=== PATIENT | female | born 1940 | race Caucasian/White ===

== ENCOUNTER 2016-09-13 15:02 | Inpatient (IN) | payer MEDICARE ==
[2016-09-13] MEDS ORDERED: ALBUTEROL NEBULIZED 2.5 MG/3 ML INHALATION PRN (21:45)
[2016-09-13] MEDS ORDERED: MELATONIN 3 MG TABLET PO PRN (22:25)
[2016-09-13] MEDS ORDERED: NALOXONE 0.4 MG/ML 1 ML VIAL IV PRN (22:25)
[2016-09-13] MEDS ORDERED: oxyCODONE-APAP 5-325MG 1 EACH TAB PO PRN (22:25)
[2016-09-13] MEDS ORDERED: ALPRAZolam 0.25 MG TAB PO PRN (22:25)
[2016-09-13] MEDS ORDERED: ACETAMINOPHEN TAB 325 MG TAB PO PRN (22:25)
[2016-09-13 22:58] LABS: Basophils % (A) 0 %; CH 26.9; CHCM 31.2; Eosinophils # (A) 0.1 k/uL (0-0.7); Eosinophils % (A) 1 %; HCT 47.5 % (34.0-46.0); HDW 2.27; HGB 14.2 gm/dL (11.4-16.0); Luc # (Auto) 0.06; Luc % (Auto) 1; Lymphocytes # (A) 0.7 k/uL (1.0-4.8); Lymphocytes % (A) 9 %; MCH 25.9 pg (25.0-35.0); MCHC 29.9 g/dL (31.0-37.0); MCV 86.5 fL (80.0-100.0); Mean Platelet Volume 6.8; Monocytes # (A) 0.3 k/uL (0-1.0); Monocytes % (A) 4 %; Neutrophils # (A) 6.7 k/uL (1.3-7.7); Neutrophils % (A) 86 %; RBC 5.49 m/uL (3.80-5.40); RDW 12.4 % (11.5-15.5); WBC 7.8 k/uL (3.8-10.6); WBC (Perox) 7.96
--- NOTE | 2016-09-13 22:59 | XR ---
EXAMINATION TYPE: XR chest 1V portable DATE OF EXAM: 09/13/2016 10:49 PM COMPARISON: NONE HISTORY: Heart failure. Short of breath. TECHNIQUE: Single frontal view of the chest is obtained. FINDINGS: There is extensive reticular nodular infiltrate in the mid and upper lung ackerman. There is retraction of the pulmonary leilani. Heart size is normal. There is no heart failure. There is no pleur al effusion. Bony thorax is intact. IMPRESSION: There is extensive pulmonary scarring and volume loss in the upper lobes. This could rel ate to old granulomatous disease and reactivation tuberculosis. Normal heart.
[2016-09-13] MEDS: SODIUM CHLORIDE 0.9% 1,000 ML IV SCH (23:07)
[2016-09-13 23:14] LABS: ALT 49 U/L (9-52); AST 40 U/L (14-36); Alkaline Phosphatase 53 U/L (38-126); Anion Gap 9 mmol/L; Blood Urea Nitrogen 23 mg/dL (7-17); Carbon Dioxide 29 mmol/L (22-30); Chloride 101 mmol/L (98-107); Glucose 175 mg/dL (74-99); Magnesium 2.4 mg/dL (1.6-2.3); Non-African American GFR(MDRD) >60 (>60 ml/min/1.73 sqM); Phosphorous 3.8 mg/dL (2.5-4.5); Potassium 4.7 mmol/L (3.5-5.1); Sodium 139 mmol/L (137-145); Total Bilirubin 0.5 mg/dL (0.2-1.3); Total Protein 6.7 g/dL (6.3-8.2)
[2016-09-13] MEDS: NICOTINE 14MG/24HR PATCH TRANSDERM SCH (23:44)
[2016-09-14] MEDS: AZITHROMYCIN 500 MG in SODIUM CHLORIDE 0.9% 250 ML IVPB SCH ×2 (00:25→20:15)
[2016-09-14 06:06] LABS: Basophils # (A) 0.1 k/uL (0-0.2); Basophils % (A) 0 %; CH 26.1; CHCM 28.2; Eosinophils % (A) 0 %; HCT 49.5 % (34.0-46.0); HDW 2.34; HGB 14.2 gm/dL (11.4-16.0); Hypochromasia Marked; Luc # (Auto) 0.24; Luc % (Auto) 2; Lymphocytes # (A) 1.2 k/uL (1.0-4.8); Lymphocytes % (A) 10 %; MCH 26.6 pg (25.0-35.0); MCHC 28.7 g/dL (31.0-37.0); Mean Platelet Volume 7.4; Monocytes # (A) 1.1 k/uL (0-1.0); Monocytes % (A) 10 %; Neutrophils # (A) 8.8 k/uL (1.3-7.7); Neutrophils % (A) 78 %; RBC 5.33 m/uL (3.80-5.40); RDW 12.6 % (11.5-15.5); WBC 11.4 k/uL (3.8-10.6); WBC (Perox) 11.66
[2016-09-14 06:10] LABS: Anion Gap 6 mmol/L; Blood Urea Nitrogen 19 mg/dL (7-17); Calcium 9.1 mg/dL (8.4-10.2); Carbon Dioxide 31 mmol/L (22-30); Chloride 103 mmol/L (98-107); Glucose 113 mg/dL (74-99); Non-African American GFR(MDRD) >60 (>60 ml/min/1.73 sqM); Potassium 5.2 mmol/L (3.5-5.1); Sodium 140 mmol/L (137-145)
[2016-09-14 06:14] LABS: MCV 92.9 fL (80.0-100.0)
[2016-09-14] MEDS: FORMOTEROL FUMARATE 20 MCG/2 ML NEBU INHALATION SCH ×2 (07:16→19:40)
[2016-09-14] MEDS: IPRATROPIUM 0.5 MG/2.5 ML NEBU INHALATION SCH ×3 (07:16→19:40)
[2016-09-14] MEDS: LEVALBUTEROL NEB (CONC) 1.25 MG/0.5 ML AMP INHALATION SCH ×3 (07:16→19:40)
--- NOTE | 2016-09-14 08:00 | HP ---
DATE OF ADMISSION: CHIEF COMPLAINT: Shortness of breath and cough. HISTORY OF PRESENT ILLNESS: This 75-year-old woman with a past medical history of apparent heartburn, constipation and history of pneumonia, not being followed by any primary physician in the outpatient setting, living in [place]. Patient apparently was smoking. The patient's recently passed because of emphysema. The patient was having shortness of breath and difficulty in walking and weakness presented to [facility]. The patient was diagnosed to have possible pneumonia, but apparently the patient left the hospital AGAINST MEDICAL ADVICE. Because of increased difficulty, the patient went back and subsequently transferred to [facility] as a direct admission at this time. A CAT scan and chest x-ray were done in the [facility] and as mentioned earlier showed evidence of nodular lesions and as well as possible pneumonia as well. There is no history of any fever, rigors. No history of headache, loss of consciousness or seizures. The patient is severely emaciated. BMI is only 15.5. Patient only reported a couple pounds of weight loss. PAST MEDICAL HISTORY: History of heartburn, pneumonia. Medications recently started: 1. Prednisone 40 mg daily. 2. Levaquin 750 p.o. daily. 3. Ventolin HFA 2 puffs q.6 p.r.n. ALLERGIES: PREDNISONE, causes swelling. FAMILY HISTORY: History of COPD and emphysema. SOCIAL HISTORY: History of smoking as mentioned. No history of alcohol intake. REVIEW OF SYSTEMS: ENT: No diminished hearing or diminished vision. CARDIOVASCULAR SYSTEM: No angina or palpitations. RESPIRATORY: As mentioned earlier. GI: No nausea. : No dysuria. NERVOUS SYSTEM: No numbness or weakness. ALLERGY/IMMUNOLOGY: No asthma or hayfever. MUSCULOSKELETAL: As mentioned earlier. HEMATOLOGY/ONCOLOGY: No history of anemia. ENDOCRINE: No history of diabetes mellitus or hypothyroidism. CONSTITUTIONAL: As mentioned earlier. DERMATOLOGY: Negative. RHEUMATOLOGY: Negative. PSYCHIATRY: As mentioned earlier. PHYSICAL EXAMINATION: The patient is alert and oriented x3. The pulse is 87, blood pressure 135/78, respirations 18, temperature 97.5, pulse ox 97% on 3 L. HEENT: Conjunctivae normal. Oral mucosa moist. NECK: No jugular venous distention. No carotid bruit. No lymph node enlargement. The patient is severely emaciated. BMI is only 15.5. Otherwise accessory muscles of respiration acting. CARDIOVASCULAR: S1 and S2, muffled. No S3, no S4. RESPIRATORY: Breath sounds diminished at the bases. Breathing efforts are mildly increased. Bilateral scattered rhonchi and crackles. ABDOMEN: Soft, nontender. No mass palpable. Scaphoid. LEGS: No edema, no swelling. NERVOUS SYSTEM: Higher function as mentioned. Moves all4 limbs. No focal motor deficits. LYMPHATICS: No lymphadenopathy of neck, axillae or groin. SKIN: No ulcers, rashes or bleeding. Labs are not available. ASSESSMENT: 1. Chronic obstructive pulmonary disease acute exacerbation with acute purulent tracheobronchitis possibly bronchopneumonia. 2. The nodular lesions on the CAT scan, rule out malignancy. 3. Severe protein calorie malnutrition and weight loss with the body mass index 15.5. 4. History of nicotine dependence. 5. History of bunionectomy. 6. History of tuberculosis. 7. FULL CODE. RECOMMENDATIONS AND DISCUSSION: This 75-year-old woman presented with multiple complex medical issues, will monitor the patient closely. Continue the current medication. Continue symptomatic treatment. Will initiate broad-spectrum antibiotic. I will initiate Rocephin and Zithromax. Otherwise, pulmonary consult and bronchodilators. Steroids may be avoided because of the history of allergies. Prognosis guarded. Further recommendations to follow. I also recommend the patient to follow up with primary care physician as well as web content executive as an outpatient as mentioned earlier. We will review the CAT scan report as well. Chest x-ray has been ordered. Prognosis guarded. Influenza testing also will be done. Further recommendations to follow. Smoking cessation has been advised. MTDD
[2016-09-14] MEDS ORDERED: LEVOFLOXACIN 750 MG TAB PO SCH (09:00)
[2016-09-14] MEDS: PANTOPRAZOLE 40 MG TABLET PO SCH (09:34)
[2016-09-14] MEDS: HEPARIN SODIUM,PORCINE 5,000 UNIT/ML 1 ML VIAL SQ SCH ×2 (09:34→20:15)
[2016-09-14] MEDS: NICOTINE 14MG/24HR PATCH TRANSDERM SCH (09:34)
[2016-09-14 11:30] VITALS: BMI 15.5
[2016-09-14] MEDS: MULTIVITAMINS, THERA 1 EACH TAB PO SCH (13:55)
[2016-09-14 17:00] LABS: Appearance,Urine Clear (Clear); Bilirubin,Urine Negative (Negative); Glucose,Urine (UA) Negative (Negative); Ketones,Urine Negative (Negative); Leukocyte Esterase,Urine Negative (Negative); Nitrite,Urine Negative (Negative); PH, Urine 5.5 (5.0-8.0); Protein,Urine Negative (Negative); Specific Gravity,Urine 1.022 (1.001-1.035); UA Billing (MACRO vs. MICRO) CHEM; Urobilinogen,Urine <2.0 mg/dL (<2.0)
--- NOTE | 2016-09-14 18:27 | PN ---
DATE OF SERVICE: 09/14/2016 This 75 -year-old woman was admitted with COPD acute exacerbation also had bilateral lung lesions also. The patient has history of previously. Apparently the patient contracted from her father who had but currently the patient also complains of significant weight loss. Also, Dr. Martin is following the patient closely. Troponins are negative at this time. The patient is short of breath as mentioned earlier. The patient is extremely emaciate with only body mass index 15.5 at this time. Past medical history reviewed. REVIEW OF SYSTEMS: CARDIOVASCULAR: No angina or palpitations. RESPIRATORY: As mentioned earlier. GI: No nausea. : No dysuria or retention. Current medications are: 1. Tylenol 650 q.6 p.r.n. q.i.d. 2. Ventolin q.i.d. and p.r.n. 3. Xanax. 4. Zithromax 500 mg IV daily. 5. Rocephin 1 gm IV daily. 6. Perforomist b.i.d. 7. Heparin. 8. Heparin. 9. Atrovent. 10. Xopenex q.i.d. and p.r.n. 11. Melatonin 3 mg q.h.s. p.r.n. 12. Narcan. 13. Habitrol 14. 14. Percocet. 15. Protonix. PHYSICAL EXAMINATION: The patient is alert and oriented times three. Pulse is 73. Blood pressure 130/64, respiratory rate 17, temperature 96.4, pulse ox 94% on room air. HEENT: Conjunctivae normal. Oral mucosa moist. NECK: No jugular venous distention. No carotid bruit. No lymph node enlargement. No thyroid enlargement. CARDIOVASCULAR: S1 and S2, muffled. No S3, no S4. RESPIRATORY: Breath sounds diminished at the bases. Breathing efforts are markedly increased./ Bilateral scattered rhonchi and expiratory wheezing also present. ABDOMEN: Soft, nontender. No mass palpable. LEGS: No edema. No swelling. CENTRAL NERVOUS SYSTEM: Higher functions as mentioned earlier. Moves all four limbs. No focal deficits. LYMPHATICS: No lymph nodes palpable in the neck, axillae or groin. SKIN: No ulcer, rash or bleeding. LABS: WBC 11.2, hemoglobin 14.2, sodium 140. Potassium 5.2. ASSESSMENT: 1. Chronic obstructive pulmonary disease, acute exacerbation, with acute purulent tracheobronchitis or possibly bronchopneumonia bilaterally. 2. History of multiple nodular lesions on the CAT scan, rule out malignancy. 3. Severe protein calorie malnutrition with weight loss with body mass index 15.5. 4. History of nicotine dependence. 5. History of bunionectomy. 6. History of tuberculosis. 7. Mild hyperkalemia. 8. Increased random blood sugar possibly secondary to steroids. 9. Increased WBC, possibly secondary to steroids. 10. CODE STATUS: FULL CODE. RECOMMENDATIONS AND DISCUSSION: In this 75-year-old woman who presented with multiple complex medical issues, we will monitor the patient closely. Continue with the current medications and continue symptomatic treatment. Otherwise, at this time, I would recommend continue with the broad-spectrum IV antibiotics. Continue with the current medications. Otherwise, I would also recommend ESR and follow closely with Dr. Martin as well as . Guarded prognosis. Further recommendations to follow. MTDD
[2016-09-15] MEDS: SODIUM CHLORIDE 0.9% 1,000 ML IV SCH (00:18)
[2016-09-15] MEDS: IPRATROPIUM 0.5 MG/2.5 ML NEBU INHALATION SCH ×2 (07:39→11:27)
[2016-09-15] MEDS: FORMOTEROL FUMARATE 20 MCG/2 ML NEBU INHALATION SCH (07:39)
[2016-09-15] MEDS: LEVALBUTEROL NEB (CONC) 1.25 MG/0.5 ML AMP INHALATION SCH ×2 (07:39→11:27)
[2016-09-15 08:08] VITALS: BP 142/65; RESP 20; TEMP 97
[2016-09-15 08:08] LABS: Basophils % (A) 0 %; CH 26.9; CHCM 30.5; Eosinophils # (A) 0.2 k/uL (0-0.7); Eosinophils % (A) 2 %; HCT 46.1 % (34.0-46.0); HDW 2.35; HGB 14.5 gm/dL (11.4-16.0); Hypochromasia Slight; Luc # (Auto) 0.18; Luc % (Auto) 3; Lymphocytes # (A) 1.3 k/uL (1.0-4.8); Lymphocytes % (A) 19 %; MCH 27.8 pg (25.0-35.0); MCHC 31.4 g/dL (31.0-37.0); MCV 88.5 fL (80.0-100.0); Mean Platelet Volume 7.5; Monocytes # (A) 0.6 k/uL (0-1.0); Monocytes % (A) 9 %; Neutrophils # (A) 4.7 k/uL (1.3-7.7); Neutrophils % (A) 67 %; RBC 5.21 m/uL (3.80-5.40); RDW 12.6 % (11.5-15.5); WBC 7.1 k/uL (3.8-10.6)
[2016-09-15 08:18] LABS: Anion Gap 6 mmol/L; Blood Urea Nitrogen 27 mg/dL (7-17); Calcium 8.7 mg/dL (8.4-10.2); Carbon Dioxide 34 mmol/L (22-30); Chloride 103 mmol/L (98-107); Glucose 78 mg/dL (74-99); Non-African American GFR(MDRD) >60 (>60 ml/min/1.73 sqM); Potassium 4.4 mmol/L (3.5-5.1); Sodium 143 mmol/L (137-145)
[2016-09-15] MEDS: PANTOPRAZOLE 40 MG TABLET PO SCH (08:18)
[2016-09-15] MEDS: NICOTINE 14MG/24HR PATCH TRANSDERM SCH (08:18)
[2016-09-15] MEDS: HEPARIN SODIUM,PORCINE 5,000 UNIT/ML 1 ML VIAL SQ SCH (08:18)
[2016-09-15 11:40] VITALS: PULSE 88
--- NOTE | 2016-09-15 12:23 | P.CNPUL ---
History of Present Illness Consult date: 09/15/16 Reason for consult: dyspnea, cough, COPD Chief complaint: Shortness of breath cough History of present illness: This is a 75-year-old female who was admitted with a diagnosis of COPD exacerbation. She is a heavy smoker. She started smoking when she was 13. She 75. She's been smoking for 62 years at 1-1/2 packs a day. She stopped smoking when she was admitted on September 13. I was just consulted this morning. The patient came with complaints of chest tightness wheezing cough shortness of breath. The patient's feeling a lot better today. We like to go home. Her chest x-ray shows some chronic changes in the upper lobes. He was never coughing up any blood. No fever no chills. No nausea vomiting or diarrhea. She does have history of pneumonia and heartburn. Does not have a doctor. 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 Review of Systems A 12 point review of systems is positive for shortness of breath chest tightness wheezing cough. The rest of the 12 point review of system is unremarkable. Past Medical History Past Medical History: Pneumonia Additional Past Medical History / Comment(s): occ"heartburn", occ constipation last bm 2 days ago, 2002 treated for tb History of Any Multi-Drug Resistant Organisms: None Reported Additional Past Surgical History / Comment(s): laureaon bunionectomy, throat nodules removed(benign) Past Anesthesia/Blood Transfusion Reactions: No Reported Reaction Past Psychological History: No Psychological Hx Reported Additional Psychological History / Comment(s): pt is independant.lives in own 2 story home with 2 adult children.(spouse 2015). Has 6 steps to get into house. 14 steps to get upstairs. no outside services recieved. 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 Smoking Status: Former smoker Past Alcohol Use History: None Reported Additional Past Alcohol Use History / Comment(s): started smoking at age 14 smoked 1 ppd. quit saturday09/10/16 Past Drug Use History: None Reported - Past Family History Father Family Medical History: COPD Additional Family Medical History / Comment(s): emphysema, tb Mother Family Medical History: Cancer, Diabetes Mellitus Additional Family Medical History / Comment(s): lymphoma Medications and Allergies Home Medications Medication Instructions Recorded Confirmed Type Albuterol Inhaler [Ventolin Hfa 2 puff INHALATION RT-Q6H PRN 09/13/16 09/13/16 History Inhaler] Levofloxacin [Levaquin] 750 mg PO DAILY 09/13/16 09/13/16 History predniSONE 40 mg PO DAILY 09/13/16 09/13/16 History Allergies Allergy/AdvReac Type Severity Reaction Status Date / Time prednisone AdvReac Swelling Verified 09/13/16 19:53 Physical Exam Osteopathic Statement: *. No significant issues noted on an osteopathic structural exam other than those noted in the History and Physical/Consult. Vitals: Vital Signs Temp Pulse Pulse Pulse Resp BP BP 09/15/16 11:39 88 09/15/16 11:27 84 09/15/16 08:06 92 09/15/16 08:00 20 09/15/16 07:50 92 09/15/16 07:39 96 09/15/16 07:00 97.0 F L 73 20 142/65 09/14/16 23:00 96.8 F L 85 22 126/66 09/14/16 20:02 70 09/14/16 19:52 70 09/14/16 19:41 70 09/14/16 15:00 96.4 F L 73 18 138/64 Pulse Ox 09/15/16 11:39 09/15/16 11:27 09/15/16 08:06 09/15/16 08:00 09/15/16 07:50 09/15/16 07:39 09/15/16 07:00 96 09/14/16 23:00 100 09/14/16 20:02 09/14/16 19:52 09/14/16 19:41 09/14/16 15:00 95 Intake and Output 09/14/16 09/15/16 09/15/16 22:59 06:59 14:59 Intake Total 200 100 Balance 200 100 Intake: Oral 200 100 Other: # Voids 1 No acute distress, oriented 3. The patient is wearing nasal O2. Looks very comfortable. No audible wheezing. No shortness of breath. HEENT examination is grossly unremarkable. Next memory to moist. No oral lesions. Neck supple. Full range of motion. No adenopathy or thyromegaly. Cardiovascular examination reveals regular rhythm rate. S1-S2 normal. No S3- S4 or murmur. Lungs reveal relatively clear but somewhat diminished breath sounds. No wheezes rhonchi. No crackles. Slight prolongation. Abdomen soft bowel sounds are heard. Extremities are intact. No cyanosis clubbing or edema. Results - Laboratory Findings CBC and BMP: 09/15/16 07:43 09/15/16 07:43 Abnormal lab findings: Abnormal Labs 09/13/16 09/13/16 09/14/16 22:51 22:51 05:33 WBC 11.4 H RBC 5.49 H Hct 47.5 H 49.5 H MCHC 29.9 L 28.7 L Neutrophils # 8.8 H Lymphocytes # 0.7 L Monocytes # 1.1 H Potassium Carbon Dioxide BUN 23 H Glucose 175 H Magnesium 2.4 H AST 40 H 09/14/16 09/15/16 09/15/16 05:33 07:43 07:43 WBC RBC Hct 46.1 H MCHC Neutrophils # Lymphocytes # Monocytes # Potassium 5.2 H Carbon Dioxide 31 H 34 H BUN 19 H 27 H Glucose 113 H Magnesium AST - Diagnostic Findings Chest x-ray: image reviewed (Chest x-ray labs and medications are all reviewed.) Assessment and Plan (1) COPD (chronic obstructive pulmonary disease) Status: Acute Plan: Plan Patient looks well. Could be discharged home. She wants to go home. She should be discharged home on a prednisone burst and taper I will start her off 40 mg for 4 days 30 for 4 days 20 for 4 days 10 for 4 days and stop. Would give her a short course of antibiotics. She should be sent home on an updraft machine with albuterol and Atrovent use 2-4 times a day. Finally, I would be inclined to send her home on a combination long-acting beta agonist/inhaled corticosteroid such as Briel Symbicort Advair do JOSE. She should've follow-up in our office. Additional recommendations are made. She'll also have To find herself a primary doctor. In addition, finally, I counseled her about the importance of smoking cessation. She's been smoking for 62 years. Time with Patient: Greater than 30
[2016-09-15] MEDS: MULTIVITAMINS, THERA 1 EACH TAB PO SCH (12:48)
--- NOTE | 2016-09-15 20:10 | DS ---
DATE OF ADMISSION: 09/13/2016 DATE OF DISCHARGE: 09/15/2016 FINAL DIAGNOSES: 1. Chronic obstructive pulmonary disease, acute exacerbation with possible acute purulent tracheobronchitis, possibly bronchopneumonia bilaterally. 2. History of multiple nodular lesions on the CAT scan done as well. 3. Severe protein-calorie malnutrition with weight loss with a body mass index of 15.5. 4. History of nicotine dependence. 5. History of bunionectomy. 6. History of tuberculosis. 7. Mild hyperkalemia. 8. Increased random blood sugar. 9. Increased WBC. 10. CODE STATUS: FULL CODE. DISCHARGE DISPOSITION: The patient will be discharged in stable condition with guarded prognosis after Dr. Martin clears the patient. HISTORY OF PRESENT ILLNESS: This 75-year-old woman with a past medical history of multiple medical problems admitted with COPD and tracheobronchitis, other multiple medical issues. Patient was treated symptomatically. Dr. Martin saw the patient. Chest x-ray showed some chronic changes per Dr. Martin, who recommended outpatient followup. On exam, vitals are stable. CARDIOVASCULAR SYSTEM: S1, S2, muffled. RESPIRATORY: A few scattered rhonchi and crackles. ABDOMEN: Soft. NERVOUS SYSTEM: No focal deficits. DISCHARGE ADVICE AND MEDICATIONS : 1. Diet is cardiac. 2. Activity limited until followup. 3. Follow up with Dr. Guerrero in 2 to 3 days. Follow up with Dr. Martin in 1 week. 4. Medications are: a. Xanax 0.5 every 6 hours p.r.n. b. Tylenol 650 every 6 hours p.r.n. c. Zithromax 500 mg p.o. daily for 7 days. d. Ceftin 500 mg p.o. daily for 5 days. e. Albuterol/Atrovent updrafts q.i.d. and p.r.n. f. Multivitamins 1 p.o. daily. g. Habitrol 14 daily. Once again, the patient will be discharged in stable condition with a guarded prognosis.
== END 2016-09-15 15:13 | disposition home or self-care (01) | DRG 190 ==
LOC: 4MS4W 19:14
PROVIDERS: ADMIT Internal Medicine; ATTEND Internal Medicine
DX: J44.0 Chronic obstructive pulmonary disease with (acute) lower respiratory infection (principal); E43 Unspecified severe protein-calorie malnutrition; J18.0 Bronchopneumonia, unspecified organism; E87.5 Hyperkalemia; R64 Cachexia; Z68.1 Body mass index [BMI] 19.9 or less, adult; J44.1 Chronic obstructive pulmonary disease with (acute) exacerbation; K59.00 Constipation, unspecified; R91.8 Other nonspecific abnormal finding of lung field; R73.09 Other abnormal glucose; D72.829 Elevated white blood cell count, unspecified; R12 Heartburn; R26.2 Difficulty in walking, not elsewhere classified; Z87.01 Personal history of pneumonia (recurrent); Z83.3 Family history of diabetes mellitus; Z80.7 Family history of other malignant neoplasms of lymphoid, hematopoietic and related tissues; Z71.6 Tobacco abuse counseling; Z71.3 Dietary counseling and surveillance; Z86.11 Personal history of tuberculosis; Z82.5 Family history of asthma and other chronic lower respiratory diseases; Z88.8 Allergy status to other drugs, medicaments and biological substances; Z91.19 Patient's noncompliance with other medical treatment and regimen; Z79.899 Other long term (current) drug therapy; Z87.891 Personal history of nicotine dependence
CPT/HCPCS: 71010; 80048; 80053; 81003; 83735; 84100; 84484; 85025; 85652; 86140; 93005; 94640; 94760; 96365; 96366; 96372

== ENCOUNTER → 2017-07-25 | Outpatient (CLI) | payer MEDICARE ==
--- NOTE | 2017-07-25 14:14 | CT ---
EXAMINATION TYPE: CT brain wo con DATE OF EXAM: 07/25/2017 COMPARISON: NONE HISTORY: Injury of head, July 07, 2017 CT DLP: [address] of the brain was performed. The ventricles, basal cisterns and sulci overlying the cerebral convexities demonstrate mild enlargem ent. There is no evidence for intracranial hemorrhage or sulcal effacement. There is decreased attenuation about the periventricular white matter and deep white matter of both c erebral hemispheres, compatible with chronic small vessel ischemia. Differential diagnosis does inclu de demyelination. No mass effects are seen.No midline shift. Osseous calvarium is intact. If symptoms persist consider MRI. IMPRESSION: 1. Age related atrophic and chronic small vessel ischemic change without acute intracranial process s een at this time.
--- NOTE | 2017-07-25 14:15 | XR ---
EXAMINATION TYPE: XR chest 2V DATE OF EXAM: 07/25/2017 HISTORY: Shortness of breath. COMPARISON: 09/13/2016 TECHNIQUE: Single view of the chest is submitted. FINDINGS: Upper lobe fibrosis with underlying granulomas and bilateral hilar retraction compatible with chronic inflammatory process. There is no evidence for acute focal infiltrate. The heart is stable. Hilar and mediastinal structures are within normal limits. Degenerative changes are seen of the dorsal spine. IMPRESSION: 1. Chronic changes without evidence for acute pulmonary disease.
[2017-07-25 14:20] LABS: ALT 26 U/L (9-52); AST 20 U/L (14-36); Albumin 3.8 g/dL (3.5-5.0); Alkaline Phosphatase 72 U/L (38-126); Anion Gap 6 mmol/L; Blood Urea Nitrogen 19 mg/dL (7-17); Calcium 9.7 mg/dL (8.4-10.2); Carbon Dioxide 38 mmol/L (22-30); Chloride 98 mmol/L (98-107); Glucose 107 mg/dL (74-99); Potassium 4.6 mmol/L (3.5-5.1); Sodium 142 mmol/L (137-145); Total Bilirubin 0.8 mg/dL (0.2-1.3); Total Protein 6.5 g/dL (6.3-8.2)
[2017-07-25 14:21] LABS: Basophils % (A) 1 %; Eosinophils # (A) 0.2 k/uL (0-0.7); Eosinophils % (A) 3 %; HCT 45.7 % (34.0-46.0); Hypochromasia Moderate; Lymphocytes # (A) 1.2 k/uL (1.0-4.8); Lymphocytes % (A) 14 %; MCH 27.7 pg (25.0-35.0); MCHC 30.5 g/dL (31.0-37.0); MCV 90.8 fL (80.0-100.0); Mean Platelet Volume 7.3; Monocytes # (A) 0.7 k/uL (0-1.0); Monocytes % (A) 8 %; Neutrophils # (A) 6.4 k/uL (1.3-7.7); Neutrophils % (A) 74 %; Platelet Count 293 k/uL (150-450); RBC 5.03 m/uL (3.80-5.40); RDW 12.5 % (11.5-15.5); WBC 8.6 k/uL (3.8-10.6)
[2017-07-25 14:46] LABS: Troponin I 0.013 ng/mL (0.000-0.034)
== END | disposition home or self-care (01) ==
LOC: RADCTMAIN 13:31
PROVIDERS: ATTEND Physician Assistant
DX: G31.1 Senile degeneration of brain, not elsewhere classified (principal); I67.82 Cerebral ischemia; R41.0 Disorientation, unspecified; J44.0 Chronic obstructive pulmonary disease with (acute) lower respiratory infection; F02.81 Dementia in other diseases classified elsewhere, unspecified severity, with behavioral disturbance; R91.8 Other nonspecific abnormal finding of lung field; R07.89 Other chest pain; R09.02 Hypoxemia; R60.0 Localized edema; R06.02 Shortness of breath; S09.90XA Unspecified injury of head, initial encounter; X08.8XXA Exposure to other specified smoke, fire and flames, initial encounter; W19.XXXA Unspecified fall, initial encounter
CPT/HCPCS: 36415; 70450; 71046; 80053; 82553; 83880; 84484; 85025

== ENCOUNTER → 2017-07-26 | Outpatient (CLI) | payer MEDICARE ==
[2017-07-26 13:01] LABS: ABG Base Excess 9.9 mmol/L; ABG HCO3 34 mmol/L (21-25); ABG PCO2 45 mmHg (35-45); ABG PH 7.49 (7.35-7.45); ABG PO2 63 mmHg (83-108); ABG TCO2 35 mmol/L (19-24)
== END | disposition home or self-care (01) ==
LOC: LABWHC1 12:26
PROVIDERS: ATTEND Internal Medicine Critical Care Medicine
DX: J44.9 Chronic obstructive pulmonary disease, unspecified (principal)
CPT/HCPCS: 36600; 82805